=== PATIENT | female | born 1985 | race Caucasian/White ===

== ENCOUNTER 2024-01-02 01:16 | Inpatient (IN) ==
[2024-01-02] MEDS ORDERED: LACTATED RINGER'S 1,000 ML IV PRN (01:38)
[2024-01-02] MEDS: OXYTOCIN 30 UNITS/NSS 30 UNITS/500 ML BAG IV PRN (01:56)
[2024-01-02] MEDS: LIDOCAINE 1% LOCAL 20 ML VIAL INFIL PRN (01:56)
--- NOTE | 2024-01-02 02:11 | History & Physical Report ---
Date of Service January 02, 2024 Assessment & Plan (1) 38 weeks gestation of : Plan: Admit, routine labs anticipate (2) Positive GBS test: Plan: IV abx (3) AMA (advanced maternal age) multigravida 35+: (4) Antepartum anemia complicating in third trimester: (5) High-risk in third trimester: (6) Family history of cleft palate: (7) History of macrosomia in infant in prior , currently in third trimester: (8) History of vacuum extraction assisted delivery: (9) Asthma affecting in third trimester: History of Present Illness Chief Complaint: CTX Primary Care Provider: NO PCP Patient is a 38-year-old -0-2-1 at 38 weeks and 5 days dated by 7-week ultrasound who presents to labor and delivery for worsening contractions and rupture of membranes. Patient notes good movement. Denies any vaginal bleeding. She was seen in triage earlier this evening for rule out rupture that was negative is complicated by GBS positive Class II obesity History of gestational hypertension versus preeclampsia with severe range blood pressure on labor and delivery during the last delivery. Last delivery was complicated by vacuum-assisted which resulted in vaginal lacerations that required repair in the operating room. Patient does not desire epidural at this time. History of microsomal , Advanced maternal age, family history of cleft palate On initial exam she was checked by nursing staff and was 7 cm dilated, and then I was called quickly as she was not voluntarily pushing Allergies Allergy/AdvReac Type Severity Reaction Status Date / Time No Known Allergies Allergy Verified 01/01/24 19:34 Home Medications Medication Instructions Recorded Confirmed Type cephalexin 500 mg tablet 500 mg PO TID 01/01/24 01/01/24 History vits no.124-ferrous fum 1 tab PO DAILY 01/01/24 01/01/24 History 27 mg iron-folic acid 800 mcg tablet ( Vitamin) Patient History Social History Smoking Status: Never smoker Second Hand Exposure: No; Hx Alcohol Use: No Hx Substance Use: No Preferred Language: Korean Communication Ability: Effective Inventory Associate And Driver Required: No Beliefs That Will Affect Care: None marital status: Current Living Situation: Spouse and Family Current Living Situation Comment: 6 year old son and Feels Safe at Home: Yes Assistive Devices: Glasses OB History [id number] OCCASIONAL CAREGIVER History See record Review of Systems All systems reviewed & are unremarkable except as noted in HPI & below Physical Exam Constitutional: WD/WN, vitals as above Respiratory: normal respiratory effort, lungs clear to auscultation Cardiovascular: RRR, no murmur, no edema Genitourinary: Cx 7 cm check by RN on my exam station Results & Data Vital Signs (Past 12 Hours) Vital Signs Pulse BP 01/02/24 02:04 90 128/60 Monitoring External Monitor Had to trace due to patient pushing, was able to trace in 120's Tocodynamometer Ctx every 1-2 min
[2024-01-02] MEDS ORDERED: oxyCODONE/ACETAMINOPHEN 5mg/325mg TAB PO PRN (02:17)
[2024-01-02] MEDS ORDERED: OXYTOCIN 30 UNITS/NSS 30 UNITS/500 ML BAG IV PRN (02:17)
[2024-01-02] MEDS ORDERED: HYDROCORTISONE ACETATE 25 MG SUPP PR PRN (02:17)
[2024-01-02] MEDS ORDERED: bisacodyL 10 MG SUPP PR PRN (02:17)
[2024-01-02] MEDS ORDERED: ACETAMINOPHEN 325 MG TAB PO PRN (02:17)
--- NOTE | 2024-01-02 02:20 | Delivery Summary ---
Vaginal Delivery Summary Date of Service January 02, 2024 Vaginal Delivery Summary Delivery Summary: Patient was placed in the dorsal lithotomy position. She was prepped and draped in the usual sterile fashion. Upon maternal pushing the head was delivered atraumatically followed by the anterior shoulders, posterior shoulders then the remainder of the infants body. The was immediately placed on mother's abdomen, dried and stimulated. Delayed cord clamping for 60 seconds was p erformed. The infants mouth and nose were bulb suctioned by nursing staff. A male infant was delivered at 0151, weight pending, with APGARS of 8 at 1 minute and 9 at 5 minutes. The infant was handed off to the awaiting nursing staff. Cord blood gases were not obtained. The placenta delivered intact with three vessel cord. Placenta was sent to pathology. Thirty units of Pitocin were added to the IV fluid and allowed to run freely. Uterine massage was performed until uterus was deemed firm. Upon inspection of the perineum, cervix intact. Second degree laceration was noted, local was injected, and was repaired with 3-0 vicryl in the usual fashion. Upon re-inspection the patient was hemostatic. Uterus again massaged and found to be firm. Needle and sponge counts were correct. Patient was stable and allowed to recover in L&D room. was stable and remained in room with mother in the labor and delivery unit. EBL 300mls
[2024-01-02] MEDS: BENZOCAINE 20% SPRY 85 APPLN/85 GM CAN EXT PRN (02:27)
[2024-01-02] MEDS: IBUPROFEN 600 MG TAB PO PRN (02:28)
[2024-01-02] MEDS: PENICILLIN GK 6 MU in DEXTROSE 5% 250 ML IV STA (02:41)
[2024-01-02 02:43] LABS: Hematocrit (blood only) 37.8 % (37.0-47.0); Hemoglobin 12.7 g/dl (12.0-16.0); Mean Corpuscular Hemoglobin 29.5 pg (25.0-34.0); Mean Corpuscular Hgb Conc 33.6 g/dL (32.0-36.0); Mean Corpuscular Volume 87.7 fL (80.0-100.0); Mean Platelet Volume 10.3 fL (9.4-12.4); Platelet Count 256 K/uL (130-400); RDW Coefficient of Variation 12.7 % (11.5-14.5); RDW Standard Deviation 40.6 fL (36.4-46.3); Red Blood Count 4.31 M/uL (4.20-5.40); White Blood Count 17.07 K/ul (4.8-10.8)
[2024-01-02] MEDS ORDERED: PENICILLIN GK 3 MU in DEXTROSE 5% 100 ML IV PRN (04:39)
[2024-01-02] MEDS: DIPHTHER/TETAN/PERTUS Vaccine (Tdap, Adol/Adult) 0.5mL IM ONE (08:31)
[2024-01-02] MEDS: cephALEXin 500 MG CAP PO SCH (08:37)
[2024-01-02] MEDS: DOCUSATE SODIUM 100 MG CAP PO SCH (08:37)
[2024-01-02] MEDS: PRENATAL VITAMIN 1 TAB PO SCH (08:37)
[2024-01-02] MEDS: FERROUS SULFATE 325 MG TAB PO SCH (08:37)
[2024-01-03 07:01] LABS: Hematocrit (blood only) 35.1 % (37.0-47.0); Hemoglobin 11.6 g/dl (12.0-16.0); Mean Corpuscular Hemoglobin 29.4 pg (25.0-34.0); Mean Corpuscular Volume 88.9 fL (80.0-100.0); Mean Platelet Volume 9.9 fL (9.4-12.4); Platelet Count 244 K/uL (130-400); RDW Coefficient of Variation 13.1 % (11.5-14.5); RDW Standard Deviation 42.4 fL (36.4-46.3); Red Blood Count 3.95 M/uL (4.20-5.40); White Blood Count 11.89 K/ul (4.8-10.8)
--- NOTE | 2024-01-03 07:16 | Obstetrical Progress Note ---
Date of Service January 03, 2024 Assessment & Plan (1) Normal course: Continue routine care, anticipate discharge home tomorrow if doing well (2) Positive GBS test: Patient did not receive antibiotics in labor, plan to observe baby for 48 hours. Anticipate discharge home tomorrow Subjective Ambulation: ambulating normally Voiding: no voiding problems Passing Gas:: Yes Diet Tolerance:: regular diet Lochia:: Moderate Feeding Type:: breast feeding Current Pain Level(1-10): 2 Patient doing well at this time, pain is well-controlled on ibuprofen. Bonding well with baby. No complaints today Physical Exam Constitutional WD/WN, vitals as above Respiratory normal respiratory effort, lungs clear to auscultation Cardiovascular RRR, no murmur, no edema Results & Data Vital Signs (Past 12 Hours) Vital Signs Temp Pulse Resp BP Pulse Ox O2 Del Method 01/02/24 23:20 36.8 C 78 18 122/76 96 Room Air 01/02/24 19:50 36.8 C 96 H 20 112/72 97 Room Air Laboratory Results Laboratory Results WBC 11.89 K/ul (4.8-10.8) H 01/03/24 06:36 RBC 3.95 M/uL (4.20-5.40) L 01/03/24 06:36 Hgb 11.6 g/dl (12.0-16.0) L 01/03/24 06:36 Hct 35.1 % (37.0-47.0) L 01/03/24 06:36 MCV 88.9 fL (80.0-100.0) 01/03/24 06:36 MCH 29.4 pg (25.0-34.0) 01/03/24 06:36 MCHC 33.0 g/dL (32.0-36.0) 01/03/24 06:36 RDW Std Deviation 42.4 fL (36.4-46.3) 01/03/24 06:36 RDW Coeff of Shahana 13.1 % (11.5-14.5) 01/03/24 06:36 Plt Count 244 K/uL (130-400) 01/03/24 06:36 MPV 9.9 fL (9.4-12.4) 01/03/24 06:36
[2024-01-03] MEDS: bisacodyL 5 MG TABEC PO SCH (19:58)
[2024-01-04 06:41] LABS: Hematocrit (blood only) 36.1 % (37.0-47.0); Hemoglobin 11.6 g/dl (12.0-16.0)
--- NOTE | 2024-01-04 10:39 | Obstetrical Progress Note ---
Date of Service January 04, 2024 Subjective Ambulation: ambulating normally Voiding: no voiding problems Passing Gas:: Yes Diet Tolerance:: regular diet Lochia:: Small Feeding Type:: breast feeding Current Pain Level(1-10): 0 doing well. plans to go home today Physical Exam Constitutional WD/WN, vitals as above Gastrointestinal (Abdomen) Inspection/Auscultation: abdomen normal to inspection abdomen soft and non-tender. fundus firm below U Musculoskeletal Extremities: extremities normal to inspection Skin no rashes, warm and dry Neurologic patellar DTR's 2+ bilat, sensation intact Psychiatric A+Ox3, euthymic affect Results & Data Vital Signs (Past 12 Hours) Vital Signs Temp Pulse Resp BP Pulse Ox O2 Del Method 01/04/24 08:10 36.7 C 82 16 121/82 97 Room Air 01/04/24 03:10 36.7 C 75 20 113/75 98 Room Air Laboratory Results Laboratory Results - last 72 hr 01/02/24 01/03/24 01/04/24 02:26 06:36 06:07 WBC 17.07 H 11.89 H RBC 4.31 3.95 L Hgb 12.7 11.6 L 11.6 L Hct 37.8 35.1 L 36.1 L MCV 87.7 88.9 MCH 29.5 29.4 MCHC 33.6 33.0 RDW Std Deviation 40.6 42.4 RDW Coeff of Shahana 12.7 13.1 Plt Count 256 244 MPV 10.3 9.9
== END 2024-01-04 12:15 | disposition home or self-care (01) | DRG 807 ==
LOC: OPB 01:16 → 4S1 01:20 → 4E2 04:25